=== PATIENT | female | born 1985 | race African-American/Black ===

== ENCOUNTER 2016-09-01 14:06 | Emergency (ER) | payer OTHER ==
[~2016-09-01] VITALS: Ht 157.5 cm; Wt 79.4 kg
[~2016-09-01 14:06] MED LIST: AMOX875T PO; FERR-26 PO; HYDR-971 PO; IBUP-1060 PO; NAPR375T PO; PRED50TA PO
[2016-09-01 14:22] VITALS: BP 129/87
[2016-09-01] MEDS ORDERED: CEPH-264 PO (14:56)
--- NOTE | 2016-09-01 14:56 | PHYS DOC ---
Past Medical History Past Medical History: Other Additional Past Medical Histor: STREP THROAT Past Surgical History: No Surgical History Alcohol Use: None Drug Use: None Adult General Chief Complaint Chief Complaint: SORE THROAT HPI HPI Patient is a 31 year old female presents to the emergency department with a history of sore throat. Patient states she's had a sore throat for the last couple of days. She states that she's been using cough drops to help with pain and discomfort. She states today she was unable to swallow due to the increased pain and discomfort. She states that she was has been unable to eat anything all day and is starting at this time. Patient denies any fever, chills or any nausea vomiting.. Patient states that chest show has a slight raised rash on the right side of her neck that appears to be very itchy and irritated. It appears to be a dry skin area. Patient continues to state she has an area on her left breast that she states she was bit by a spider denies any drainage or discharge coming from the site. Patient states her tetanus immunization was within the last 5-10 years. Patient denies any further symptoms at this time. Review of Systems Review of Systems Constitutional: Denies fever or chills [] Eyes: Denies change in visual acuity, redness, or eye pain [] HENT: Denies nasal congestion C/o sore throat [] Respiratory: Denies cough or shortness of breath [] Cardiovascular: No additional information not addressed in HPI [] GI: Denies abdominal pain, nausea, vomiting, bloody stools or diarrhea [] : Denies dysuria or hematuria [] Musculoskeletal: Denies back pain or joint pain [] Integument: rash denies and bug bite to left breast Neurologic: Denies headache, focal weakness or sensory changes [] Endocrine: Denies polyuria or polydipsia [] Allergies Allergies Allergies Coded Allergies Type Severity Reaction Last Updated Verified strawberry Allergy Intermediate 10/11/15 No Physical Exam Physical Exam Constitutional: Well developed, well nourished, no acute distress, non-toxic appearance. [] HENT: Normocephalic, atraumatic, bilateral external ears normal, oropharynx moist, no oral exudates, nose normal. Bilateral TM normal, Throat red with no erythema, no exudate noted no uvla deviation noted. Patient with left adenopathy , patient with tenderness at the base of the right neck. Eyes: PERRLA, EOMI, conjunctiva normal, no discharge. [] Neck: Normal range of motion, no tenderness, supple, no stridor. [] Cardiovascular:Heart rate regular rhythm, no murmur [] Lungs & Thorax: Bilateral breath sounds clear to auscultation [] Skin: Warm, dry, no erythema, Patient with dry scaly rash noted on the right side of neck. Left breast with open area size of a dime with no drainage or discharge noted. Patient with tenderness noted. Back: No tenderness Extremities: No tenderness, no cyanosis, no clubbing, ROM intact, no edema. [] Neurologic: Alert and oriented X 3, normal motor function, normal sensory function, no focal deficits noted. [] Psychologic: Affect normal, judgement normal, mood normal. [] Current Patient Data Vital Signs Vital Signs Date Time Temp Pulse Resp B/P (MAP) Pulse Ox O2 Delivery O2 Flow Rate FiO2 09/01/16 14:22 98.9 89 18 100 Room Air 98.9 EKG EKG [] Radiology/Procedures Radiology/Procedures [] Course & Med Decision Making Course & Med Decision Making Pertinent Labs and Imaging studies reviewed. (See chart for details) Rapid strep negative. Patient will be encouraged to use Eucerin cream on the inside of her neck. Patient be encouraged to drink plenty of fluids such as water or Gatorade, propel. She is also encouraged to drink plenty of apple juice to help with hydration. Tylenol or ibuprofen for pain and discomfort. Throat lozenges a cough chest wall some soothe the throat. She will be provided with Keflex to help with the opened abscess that is draining on the left side of the breast. Patient will be discharged home in stable condition signs symptoms to return back to emergency department been provided. Dragon Disclaimer Dragon Disclaimer This electronic medical record was generated, in whole or in part, using a voice recognition dictation system. Departure Departure Impression: Primary Impression: Pharyngitis Additional Impressions: Abscess Skin abnormality Disposition: 01 HOME, SELF-CARE Condition: STABLE Referrals: NO PCP (PCP) Patient Instructions: Abscess, Care After, Viral and Bacterial Pharyngitis, [id number] Additional Instructions: Rapid strep was negative. Medication as prescribed For the rash on the right side of your neck use Eucerin cream . Cough drops and throat lozenges for sore throat. Drink plenty of fluids such as water, Gatorade, propel. Angie juice will also help with the sore throat. Keep the abscessed area clean and dry. Follow-up with her primary care physician in the next 5-7 days. Return back to emergency prior signs symptoms of become worse. Scripts Cephalexin (KEFLEX) 500 Mg Capsule 1 CAP PO BID, #14 CAP Prov: CORINE GIVENS APRN 09/01/16 Problem Qualifiers CORINE GIVENS APRN September 01, 2016 14:56
[2016-09-01 15:02] LABS: NEGATIVE OBC STREP NEG; POSITIVE OBC STREP POS
== END 2016-09-01 15:10 | disposition home or self-care (01) ==
LOC: ER 14:06
DX: J02.9 Acute pharyngitis, unspecified (principal); N61.1 Abscess of the breast and nipple; R21 Rash and other nonspecific skin eruption; Z91.018 Allergy to other foods
CPT/HCPCS: 87070; 87880; 99283